=== PATIENT | male | born 1995 | race Hispanic/Latino ===

== ENCOUNTER 2018-06-20 14:39 | Emergency (ER) | payer SELFPAY ==
[2018-06-20] MEDS ORDERED: NA BORATE/BORIC AC/H2O/NACL 120 ML OPHTH IRRIG SOLN ONE (15:15)
[2018-06-20] MEDS ORDERED: TETRACAINE HCL 0.5% 4 ML OPHTH SOLN ONE (15:15)
[2018-06-20] MEDS ORDERED: FLUORESCEIN SODIUM 1 STRIP STRIP ONE (15:15)
[2018-06-20] MEDS ORDERED: ACETAMINOPHEN EXTRA STRENGTH 500 MG TABLET ONE (16:20)
== END 2018-06-20 16:51 | disposition home or self-care (01) ==
LOC: EDH 14:39
DX: S00.12XA Contusion of left eyelid and periocular area, initial encounter (principal); S29.011A Strain of muscle and tendon of front wall of thorax, initial encounter; S39.011A Strain of muscle, fascia and tendon of abdomen, initial encounter; S09.90XA Unspecified injury of head, initial encounter; F41.9 Anxiety disorder, unspecified; Z88.0 Allergy status to penicillin; Y04.8XXA Assault by other bodily force, initial encounter; Y93.89 Activity, other specified; Y92.89 Other specified places as the place of occurrence of the external cause; Y99.8 Other external cause status
CPT/HCPCS: 70450; 70486